=== PATIENT | female | born 1955 | race Hispanic/Latino ===

== ENCOUNTER 2019-03-22 18:27 | Emergency (ER) | payer SELFPAY ==
[2019-03-22] MEDS ORDERED: CODEINE 30MG/APAP 300MG TAB ONE ×2 (18:57→19:07)
[2019-03-22] MEDS ORDERED: ONDANSETRON 4 MG (ODT) TAB ONE (18:58)
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
[2019-03-22 21:40] VITALS: BP 149/70; TEMP 97.8; O2SAT 98
== END 2019-03-22 20:12 | disposition home or self-care (01) ==
LOC: ER 18:27
DX: S16.1XXA Strain of muscle, fascia and tendon at neck level, initial encounter (principal); V49.40XA Driver injured in collision with unspecified motor vehicles in traffic accident, initial encounter; Z88.5 Allergy status to narcotic agent
CPT/HCPCS: 70450; 72125; 99284